=== PATIENT | male | born 1965 | race Caucasian/White ===

== ENCOUNTER 2020-10-28 20:57 | Emergency (ER) | payer MEDICAID ==
--- NOTE | 2020-10-29 01:53 | ED Physician Documentation ---
History of Present Illness - Stated complaint Stated Complaint: RT SHOULDER/ARM PX - Chief complaint Chief Complaint: Ext Problem - History obtained from History obtained from: Patient - History of Present Illness Timing: How many weeks ago (1) Pain level now: 8 Radiates to: RUE (axilla to lateral aspect right elbow and right hand) Improved by: rest Worsened by: movement of neck - Additonal information Additional information: c/o pain right side of neck that radiates to right scapula, right axilla, and lateral aspects of right elbow and hand. worse with movement of neck. denies injury. similar episode 5 years ago which resolved after 5 days Review of Systems Constitutional: reports: Reviewed and negative Skin: denies: Rash Musculoskeletal: reports: Neck pain, Extremity pain. denies: Back pain, Extremity swelling, Joint swelling Neurologic: denies: Focal weakness, Numbness PD PAST MEDICAL HISTORY - Past Medical History Past Medical History: Yes GI: Other Psych: Depression, Anxiety Other Past Medical History: Barrettes's esophagus - Past Surgical History Past Surgical History: No HEENT: Tonsil/Adenoidectomy, Other - Present Medications Home Medications: Ambulatory Orders Medication Instructions Recorded Confirmed Atenolol [Tenormin] 50 mg PO DAILY 10/29/20 10/29/20 Cyclobenzaprine [Flexeril] 10 mg PO TID PRN #20 tablet 10/29/20 Gabapentin [Neurontin] 1,200 mg PO TID 10/29/20 10/29/20 Lisinopril [Zestril] 20 mg PO DAILY 10/29/20 10/29/20 Oxycodone HCl/Acetaminophen 1 - 2 each PO Q6H PRN #14 tablet 10/29/20 [Percocet 5-325 mg Tablet] Pantoprazole [Protonix] 40 mg PO DAILY 10/29/20 10/29/20 Sertraline [Zoloft] 50 mg PO DAILY 10/29/20 10/29/20 - Allergies Allergies/Adverse Reactions: Allergies Allergy/AdvReac Type Severity Reaction Status Date / Time No Known Drug Allergies Allergy Verified 10/28/20 21:10 - Social History Does the pt smoke?: Yes Smoking Status: Current every day smoker Does the pt drink ETOH?: Yes Does the pt have substance abuse?: No - Immunizations Immunizations are current?: Yes - POLST Patient has POLST: No PD ED PE NORMAL - Vitals Vital signs reviewed: Yes - General General: Alert and oriented X 3, No acute distress, Well developed/nourished - Neck Neck: Supple, no meningeal sign, No bony TTP - Respiratory Respiratory: No respiratory distress, Clear bilaterally - Derm Derm: Normal color, Warm and dry, No rash - Extremities Extremities: No deformity, No tenderness to palpate, Normal ROM s pain, No edema - Neuro Neuro: No motor deficit, No sensory deficit - Free text exam Free text exam: pain is reproduced with tilting head to right (trying to touch head to right shoulder) or rotating head to right Results - Vitals Vitals: Oxygen O2 Source Room air - Rads (name of study) chest xray Radiology: Prelim report reviewed, See rad report PD MEDICAL DECISION MAKING - ED course Complexity details: reviewed results, re-evaluated patient, considered differential, d/w patient Departure - Departure Disposition: 01 Home, Self Care Clinical Impression: Cervical radiculopathy Condition: Good Instructions: ED Cervical Radiculopathy Prescriptions: Cyclobenzaprine [Flexeril] 10 mg PO TID PRN #20 tablet PRN Reason: Spasms Oxycodone HCl/Acetaminophen [Percocet 5-325 mg Tablet] 1 - 2 each PO Q6H PRN #14 tablet PRN Reason: pain Discharge Date/Time: 10/29/20 04:20
[2020-10-29] MEDS ORDERED: oxyCODONE 5 MG TABLET PO STA (02:38)
[2020-10-29] MEDS ORDERED: CYCLOBENZAPRINE 10 MG TABLET PO STA (02:38)
[2020-10-29 04:04] VITALS: BP 157/80
--- NOTE | 2020-10-29 09:44 | XRAY Report ---
PROCEDURE: Chest 2 View X-Ray INDICATIONS: right chest pain TECHNIQUE: 2 view(s) of the chest. COMPARISON: None. FINDINGS: Surgical changes and devices: None. Lungs and pleura: No pleural effusions or pneumothorax. Lungs are clear. Mediastinum: Mediastinal contours are normal. Heart size is normal. Bones and chest wall: No suspicious bony abnormalities. Soft tissues appear unremarkable. IMPRESSION: No acute pulmonary process. The above findings are concordant with preliminary report. Reviewed by: Yessenia Gurrola MD on 10/29/2020 9:42 AM PST Approved by: Yessenia Gurrola MD on 10/29/2020 9:42 AM [facility] Station ID: [id number]
== END 2020-10-29 04:20 | disposition home or self-care (01) ==
LOC: ED 20:57
DX: M54.12 Radiculopathy, cervical region (principal); F17.200 Nicotine dependence, unspecified, uncomplicated
CPT/HCPCS: 71046; 99283; 99284; A9270

== ENCOUNTER 2022-10-27 09:32 | Day surgery (SDC) | payer MEDICAID ==
[2022-10-27] MEDS ORDERED: LACTATED RINGERS 1,000 ML IV ONE (10:09)
[2022-10-27] MEDS ORDERED: BUPIVACAINE 0.25% PF 30 ML VIAL ONE (10:15)
[2022-10-27] MEDS ORDERED: LIDOCAINE MPF 2%-EPI 1:200000 20 ML VIAL ONE (10:15)
--- NOTE | 2022-10-27 11:10 | ANESTHESIA ---
Pre-Anesthesia VS, & Labs - Diagnosis forehead lipoma - Procedure excision of forehead lipoma Vital Signs: Temp Pulse Resp BP Pulse Ox O2 Flow Rate 36.1 C L 103 H 16 151/93 H 97 10/27/22 10:12 10/27/22 10:12 10/27/22 10:12 10/27/22 10:12 10/27/22 10:12 Height: 6 ft Weight (kg): 110 kg Body Mass Index: 32.8 BMI Classification: Obese - NPO >8 hours Home Medications and Allergies Home Medications: Ambulatory Orders Albuterol Sulf [Ventolin Hfa Inhaler] 1 - 2 puffs INH Q4HR PRN 10/20/22 Cholecalciferol [Vitamin D3] 25 mcg PO DAILY 10/20/22 Multivitamin 1 each PO DAILY 10/20/22 Vitamin B Complex 1 each PO DAILY 10/20/22 Zinc Gluconate [Zinc] 50 mg PO DAILY 10/20/22 amLODIPine [Norvasc] 5 mg PO DAILY 10/20/22 buPROPion [Wellbutrin Sr] 150 mg PO BID 10/20/22 Gabapentin [Neurontin] 1,200 mg PO BID 10/29/20 Lisinopril [Zestril] 40 mg PO DAILY 10/29/20 Pantoprazole [Protonix] 40 mg PO DAILY 10/29/20 Sertraline [Zoloft] 100 mg PO BID 10/29/20 Albuterol Sulf [Ventolin Hfa Inhaler] 1 - 2 puffs INH Q4HR PRN 10/20/22 Cholecalciferol [Vitamin D3] 25 mcg PO DAILY 10/20/22 Multivitamin 1 each PO DAILY 10/20/22 Vitamin B Complex 1 each PO DAILY 10/20/22 Zinc Gluconate [Zinc] 50 mg PO DAILY 10/20/22 amLODIPine [Norvasc] 5 mg PO DAILY 10/20/22 buPROPion [Wellbutrin Sr] 150 mg PO BID 10/20/22 Allergies/Adverse Reactions: Allergies Allergy/AdvReac Type Severity Reaction Status Date / Time No Known Drug Allergies Allergy Verified 10/28/20 21:10 Anes History & Medical History - Anesthetic History Anesthesia Complications: reports: No previous complications (high tolerance) - Medical History Cardiovascular: reports: Hypertension, Other (is able to walk up 2 flights of stairs without stopping. Will be short of breath at the top.) Pulmonary: reports: None Gastrointestinal: reports: GERD, Other Urinary: reports: None Neuro: reports: None Musculoskeletal: reports: Chronic back pain Endocrine/Autoimmune: reports: Other Skin: reports: None Smoking Status: Current every day smoker (5 cig per day.) Psychosocial: reports: Cannabis (2-3 times per week) History of Cancer?: No - Surgical History General: reports: Colonoscopy, EGD Eyes Ears Nose Throat (EENT): reports: Tonsil/Adenoidectomy, Other Exam General: Alert, Oriented x3, Cooperative, No acute distress Dental: WNL Mouth Openin Fingerbreadth Neck Mobility: Normal Mallampati classification: II Thyromental Distance: 4-6 cm Respiratory: Lungs clear, Normal breath sounds, No respiratory distress, No accessory muscle use Cardiovascular: Normal S1, Normal S2, Other (tachy) Mental/Cognitive Status: Alert/Oriented X3, Normal for patient Other Exam Comments:: bilateral lower extremity swelling and 3+ pitting edema. Has had issues with this since 2020. Plan Anesthesia Type: General, Total IV Consent for Procedure(s) Verified and Reviewed: Yes Code Status: Attempt Resuscitation ASA classification: 3-Severe systemic disease Is this case an emergency?: No
[2022-10-27] MEDS ORDERED: PROPOFOL 500 MG/50 ML 500 MG/50 ML VIAL ONE (11:47)
[2022-10-27] MEDS ORDERED: fentaNYL 100 MCG/2 ML VIAL ONE (11:49)
[2022-10-27] MEDS ORDERED: MIDAZOLAM 2 MG/2 ML VIAL ONE (11:49)
--- NOTE | 2022-10-27 11:59 | HISTORY & PHYSICAL EXAMINATION ---
Chief Complaint - Chief Complaint Chief Complaint: large uncomfortable lump forehead History of Present Illness - History Obtained From Records Reviewed: yes History obtained from: pt Exam Limitations: none - History of Present Illness HPI Comment/Other: growing and now symptomatic forehead lipoma History - Past Medical History Cardiovascular: reports: Hypertension, Other (is able to walk up 2 flights of stairs without stopping. Will be short of breath at the top.) Respiratory: reports: None Neuro: reports: None Endocrine/Autoimmune: reports: Other GI: reports: GERD, Other : reports: None HEENT: reports: Chronic vision loss Psych: reports: Depression, Anxiety, ADD/ADHD, Post traumatic stress disorder Musculoskeletal: reports: Chronic back pain Derm: reports: None MRSA Hx?: No - Past Surgical History General: reports: Colonoscopy, EGD HEENT: reports: Tonsil/Adenoidectomy, Other - POLST Patient has POLST: No Meds/Allgy - Home Medications Home Medications: Ambulatory Orders Medication Instructions Recorded Confirmed Gabapentin [Neurontin] 1,200 mg PO BID 10/29/20 10/27/22 Lisinopril [Zestril] 40 mg PO DAILY 10/29/20 10/27/22 Pantoprazole [Protonix] 40 mg PO DAILY 10/29/20 10/27/22 Sertraline [Zoloft] 100 mg PO BID 10/29/20 10/27/22 Albuterol Sulf [Ventolin Hfa 1 - 2 puffs INH Q4HR PRN 10/20/22 10/27/22 Inhaler] Cholecalciferol [Vitamin D3] 25 mcg PO DAILY 10/20/22 10/27/22 Multivitamin 1 each PO DAILY 10/20/22 10/27/22 Vitamin B Complex 1 each PO DAILY 10/20/22 10/27/22 Zinc Gluconate [Zinc] 50 mg PO DAILY 10/20/22 10/27/22 amLODIPine [Norvasc] 5 mg PO DAILY 10/20/22 10/27/22 buPROPion [Wellbutrin Sr] 150 mg PO BID 10/20/22 10/27/22 - Allergies Allergies/Adverse Reactions: Allergies Allergy/AdvReac Type Severity Reaction Status Date / Time No Known Drug Allergies Allergy Verified 10/28/20 21:10 Review of Systems - Other Findings Other Findings: 10 pt ros as above otherwise unremarkable Exam - Vital Signs Reviewed Vital Signs: Yes Vital Signs: Vital Signs x48h Temp Pulse Resp BP Pulse Ox 10/27/22 10:12 36.1 C L 103 H 16 151/93 H 97 - Physical Exam General Appearance: positive: No acute distress, Alert, Other (3 to 4 cm forehead lipoma) Eyes Bilateral: positive: PERRL, EOMI Respiratory: positive: No respiratory distress, Breath sounds nml Cardiovascular: positive: Regular rate & rhythm Neurologic/Psychiatric: positive: Oriented x3 Conclusion/Plan - Problem List (1) Lipoma of forehead Conclusion/Plan: plan excision. parq held and consent obtained
[2022-10-27] MEDS ORDERED: PROPOFOL 200 MG/20 ML VIAL IVP ONE (12:06)
[2022-10-27] MEDS ORDERED: LIDOCAINE MPF 2%-EPI 1:200000 20 ML VIAL SUBQ ONE ×2 (12:32)
[2022-10-27] MEDS ORDERED: BUPIVACAINE 0.25% PF 30 ML VIAL SUBQ ONE ×2 (12:32)
[2022-10-27] MEDS ORDERED: LACTATED RINGERS 250 ML IV ONE (12:52)
[2022-10-27] MEDS ORDERED: oxyCODONE 5 MG TABLET PO PRN (12:57)
--- NOTE | 2022-10-27 13:02 | OPERATIVE REPORT ---
Operative Report - General Procedure Date: 10/27/22 Planned Procedure: excision 3 x 4 cm forehead lipoma Pre-Op Diagnosis: forehead lipoma Procedure Performed: excision 3 x 4 cm forehead lipoma 3.5 cm forehead intermediate repair Post Op Diagnosis: same - Procedure Note Primary Surgeon: jeyson cooney md Anesthesia Technique: Local, MAC Pathology: benign not sent Estimated Blood Loss (mL): 2 Drain/Tube Type: Other (none) Indications: painful symptomatic forehead mass Findings: as above Complications: none - Other Other Information/Narrative: The patient was properly identified brought to the operating room and placed in supine position. Monitored anesthesia care was given. He was placed in modified Fowlers position with head up. He was prepped and draped in a sterile fashion. Antibiotics were not given. A transverse elliptical incision was made directly over the large 3 x 4 cm forehead lipoma. Dissection proceeded with cutting current. The lipoma was removed in its entirety with combination of blunt dissection Metzenbaum scissors and cautery. Hemostasis was assured. Intermediate repair was then performed. Buried interrupted 4-0 Vicryl sutures were placed. Epidermis was closed with a running 5-0 Prolene. Steri-Strips were placed. He was awakened and brought to recovery in good condition.
[2022-10-27 13:09] VITALS: BP 119/72
--- NOTE | 2022-10-27 17:13 | ANESTHESIA POST OP EVALUATION ---
Anesthesia Post Eval - Post Anesthesia Eval Vitals: Last Vital Signs Temp 36.4 C L 10/27/22 13:07 Pulse 93 10/27/22 13:07 Resp 16 10/27/22 13:07 BP 119/72 10/27/22 13:07 Pulse Ox 95 10/27/22 13:07 O2 Flow Rate CV Function Including HR & BP: Stable Pain Control: Satisfactory Nausea & Vomiting: Negative Mental Status: Baseline Respiratory Status: Airway Patent Hydration Status: Satisfactory Anesthesia Complications: None
== END 2022-10-27 09:33 | disposition home or self-care (01) ==
LOC: SDS 09:32
PROVIDERS: ATTEND Surgery
DX: D17.0 Benign lipomatous neoplasm of skin and subcutaneous tissue of head, face and neck (principal); E66.9 Obesity, unspecified; Z68.32 Body mass index [BMI] 32.0-32.9, adult; F17.210 Nicotine dependence, cigarettes, uncomplicated
CPT/HCPCS: 21012; J7120

== ENCOUNTER 2023-07-27 04:32 | Outpatient (CLI) | payer MEDICAID | END 2023-07-27 04:33 | disposition EMS.NT | LOC: EMS 04:32 | DX: Z04.1 Encounter for examination and observation following transport accident (principal) ==